=== PATIENT | male | born 1940 | race Caucasian/White ===

== ENCOUNTER 2022-07-27 14:53 | Inpatient (IN) | payer OTHER ==
[2022-07-27] MEDS ORDERED: VANCOMYCIN IV 1,000 MG in IV DEXTROSE 5% 250 ML IV ONE (15:00)
[2022-07-27] MEDS ORDERED: PIPERACILLIN SODIUM/TAZOBACTAM 3.375 G in IV DEXTROSE 5% 50 ML IV ONE (15:00)
[2022-07-27] MEDS ORDERED: IV NORMAL SALINE 1000 ML BAG IV ONE (15:00)
[2022-07-27] MEDS ORDERED: IV LACTATED RINGERS SOLUTION 1,000 ML BAG IV ONE (15:00)
[2022-07-27] MEDS ORDERED: PIPERACILLIN/TAZOBACTAM/D5W 50 ML IV ONE (15:32)
[2022-07-27 15:37] LABS: CARBON DIOXIDE 25 mmol/L (21-32); CHLORIDE 99 mmol/L (98-107); CREATININE 1.1 mg/dL (0.6-1.3); GLUCOSE 141 mg/dL (74-106); POTASSIUM 3.7 mmol/L (3.5-5.1); UREA NITROGEN, BLOOD 17 mg/dL (7-18)
[2022-07-27 15:45] LABS: ALANINE AMINOTRANSFERASE 50 U/L (16-63); ALKALINE PHOSPHATASE 157 U/L (50-136); ASPARTATE AMINOTRANSFERASE 25 U/L (15-37); BILIRUBIN,DIRECT 0.2 mg/dL (0.0-0.2); BILIRUBIN,TOTAL 0.7 mg/dL (0.2-1.0); HEMATOCRIT 35.1 % (36.7-47.1); MEAN CORPUSCULAR VOLUME 90.1 fL (73.0-96.2); PLATELET COUNT (AUTO) 205 K/uL (152-348); TOTAL PROTEIN, SERUM 6.5 g/dL (6.4-8.2)
[2022-07-27 16:04] LABS: *BILIRUBIN,URIN NEGATIVE (NEGATIVE); *BLOOD, URINE 2+ (NEGATIVE); *CLARITY,URINE SLIGHTLY CLOUDY (CLEAR); *COLOR,URINE LIGHT YELLOW (YELLOW); *KETONES,URINE NEGATIVE (NEGATIVE); *UROBILINOGEN,URINE 0.2 E.U./dl (NORMAL); LEUKOCYTE ESTERASE ,URINE 3+ (NEGATIVE); NITRITE, URINE POSITIVE (NEGATIVE); PH,URINE 5.5 (5.0-8.0); UGLUCOSE NEGATIVE (NEGATIVE)
[2022-07-27 16:26] LABS: BACTERIA,URINE MANY /HPF (NONE SEEN); RBC,URINE 20-50 /HPF (0-3); SQUAMOUS EPITHELIAL CELL,UR FEW /HPF (NONE SEEN); WBC,URINE 80-100 /HPF (0-3)
[2022-07-27] MEDS ORDERED: MORPHINE SULFATE 2 MG/1 ML DISP.SYRIN IV PRN ×2 (16:45→21:45)
[2022-07-27] MEDS ORDERED: ACETAMINOPHEN 325 MG TABLET PO PRN (16:45)
[2022-07-27] MEDS ORDERED: REMEDY ESSENTIAL ZINC PASTE 113 GM TP PRN ×2 (16:45→21:45)
[2022-07-27] MEDS ORDERED: MAGNESIUM HYDROXIDE 30 ML LIQUID UDC PO PRN ×2 (16:45→21:45)
[2022-07-27] MEDS ORDERED: IV NS 1000 ML 1,000 ML IV PRN (16:45)
[2022-07-27] MEDS ORDERED: ONDANSETRON 4 MG/2 ML VIAL IV PRN ×2 (16:45→21:45)
[2022-07-27] MEDS ORDERED: VANCOMYCIN IV 200 ML ONE (16:55)
[2022-07-27] MEDS ORDERED: PIPERACILLIN SODIUM/TAZOBACTAM 3.375 G in IV DEXTROSE 5% 50 ML IV SCH ×2 (18:00→21:45)
--- NOTE | 2022-07-27 21:30 | NUR ---
Report given to Judith RUBIO tele.
--- NOTE | 2022-07-27 23:00 | NUR ---
Pt. admitted to TELE room 309, under care of Dr. Davidson. Belongs List completed Judith RUBIO aware of patients arrival to unit.
[2022-07-27 23:05] VITALS: BP 150/51
[2022-07-28] MEDS ORDERED: PIPERACILLIN/TAZOBACTAM/D5W 100 ML IV ONE (00:17)
[2022-07-28] MEDS: IV NS 1000 ML 1,000 ML IV PRN ×2 (00:38→13:40)
[2022-07-28] MEDS: ACETAMINOPHEN 325 MG TABLET PO PRN ×2 (00:51→16:37)
[2022-07-28] MEDS: PIPERACILLIN SODIUM/TAZOBACTAM 3.375 G in IV DEXTROSE 5% 50 ML IV SCH ×2 (01:54→06:51)
--- NOTE | 2022-07-28 04:13 | NUR ---
Admitted form ER under the care of Dr. Davidson, Dx: Sepsis. Alert and oriented x3, not in resp distress. Ventricular paced on tele. Oriented to room, routine admission care done, care plan initiated.
[2022-07-28 05:14] VITALS: BP 109/54
[2022-07-28 07:46] VITALS: BP 111/60
--- NOTE | 2022-07-28 11:00 | NUR ---
md talked to pt. pt complain of constipation. md order lactulose 20mg daily for constipation.
[2022-07-28] MEDS: LACTULOSE 20 G/30 ML LIQUID UDC PO SCH (11:24)
[2022-07-28 12:00] VITALS: BP 95/46
--- NOTE | 2022-07-28 13:00 | NUR ---
lactulose effective. pt ambulates with standby assist to the bathroom. patient have large bm.
[2022-07-28] MEDS ORDERED: AMLO-212 PO (15:10)
[2022-07-28] MEDS ORDERED: OMEP40CA21 PO (15:10)
[2022-07-28] MEDS ORDERED: TAMS-3 PO (15:10)
[2022-07-28] MEDS ORDERED: FOLI1TAB94 PO (15:10)
[2022-07-28] MEDS ORDERED: LOSA100T31 PO (15:10)
[2022-07-28] MEDS ORDERED: PRAV40TA3 PO (15:10)
[2022-07-28] MEDS ORDERED: ALLO100T PO (15:10)
[2022-07-28] MEDS ORDERED: CARV6.25 PO (15:10)
[2022-07-28] MEDS: PIPERACILLIN SODIUM/TAZOBACTAM 3.375 G in IV DEXTROSE 5% 100 ML IV SCH ×2 (15:51→23:30)
[2022-07-28 16:00] VITALS: BP 120/52
[2022-07-28 20:19] VITALS: BP 127/60
[2022-07-28] MEDS ORDERED: TAMSULOSIN HCL 0.4 MG CAP.SR.24H PO SCH (21:15)
--- NOTE | 2022-07-29 02:20 | NUR ---
Pt complaining of generalized pain. Administered morphine as ordered. Will reassess.
[2022-07-29 04:00] VITALS: BP 125/61
[2022-07-29] MEDS: PIPERACILLIN SODIUM/TAZOBACTAM 3.375 G in IV DEXTROSE 5% 100 ML IV SCH (06:40)
[2022-07-29] MEDS: IV NS 1000 ML 1,000 ML IV PRN (06:52)
[2022-07-29 07:06] LABS: HEMATOCRIT 28.7 % (36.7-47.1); MEAN CORPUSCULAR HEMOGLOBIN 30.4 uug (23.8-33.4); MEAN CORPUSCULAR VOLUME 89.3 fL (73.0-96.2); PLATELET COUNT (AUTO) 166 K/uL (152-348)
[2022-07-29 07:23] LABS: CREATININE 1.2 mg/dL (0.6-1.3); POTASSIUM 3.7 mmol/L (3.5-5.1)
[2022-07-29] MEDS ORDERED: CEPH500C2 PO (08:34)
--- NOTE | 2022-07-29 08:48 | NUR ---
discharge order receive. notified pt.
[2022-07-29] MEDS: LACTULOSE 20 G/30 ML LIQUID UDC PO SCH (08:56)
[2022-07-29] MEDS ORDERED: FOLIC ACID 1 MG TABLET PO SCH (09:00)
[2022-07-29] MEDS ORDERED: DOCUSATE SODIUM 250 MG CAPSULE PO SCH (09:00)
[2022-07-29] MEDS ORDERED: ALLOPURINOL 100 MG TABLET PO SCH (09:00)
--- NOTE | 2022-07-29 11:30 | NUR ---
pt is discharge. d/c instruction given to pt and his . pt will go home with her . pt is stable; ambulatory; all belongings accounted for. pt will use their private car to go home. pt left on a wheelchair to their car.
== END 2022-07-29 11:30 | disposition home or self-care (01) | DRG 689 ==
LOC: ER 14:53 → TELE3 22:51 → MEDSURG3 07-28 09:33
PROVIDERS: ADMIT Internal Medicine; ATTEND Internal Medicine
DX: N39.0 Urinary tract infection, site not specified (principal); I21.A1 Myocardial infarction type 2; N17.0 Acute kidney failure with tubular necrosis; E87.1 Hypo-osmolality and hyponatremia; D84.9 Immunodeficiency, unspecified; C79.51 Secondary malignant neoplasm of bone; C34.90 Malignant neoplasm of unspecified part of unspecified bronchus or lung; E86.1 Hypovolemia; I25.10 Atherosclerotic heart disease of native coronary artery without angina pectoris; D63.8 Anemia in other chronic diseases classified elsewhere; Z92.21 Personal history of antineoplastic chemotherapy; Z98.61 Coronary angioplasty status; R53.1 Weakness; Z95.0 Presence of cardiac pacemaker; Z20.822 Contact with and (suspected) exposure to COVID-19
CPT/HCPCS: 36415; 71045; 83605; 84484; 85025; 85730; 87040; 87086; 93005; A4663; G0378; J2270; J2543; J3370; J7040; J7120; J8499